=== PATIENT | female | born 1995 | race Caucasian/White ===

== ENCOUNTER 2018-08-15 11:18 | Emergency (ER) | payer OTHER ==
--- NOTE | 2018-08-15 12:28 | UC ---
Complaint Female HPI - HPI Summary HPI Summary: 22-year-old female presents with onset of dysuria, frequency, urgency, and hematuria this morning. Denies fever, chills, abdominal pain, nausea, vomiting , diarrhea, back or flank pain, vaginal discharge, or dyspareunia. Last menstrual period 07/21/2018. Patient on oral control and reports no missed doses. Patient is sexually active with a single male partner. denies use of barrier control. - History Of Current Complaint Chief Complaint: UCGU Stated Complaint: URINARY ISSUE Time Seen by Provider: 08/15/18 12:16 Hx Obtained From: Patient Hx Last Menstrual Period: 07/22/2018 ?: No Pain Intensity: 2 - Allergies/Home Medications Allergies/Adverse Reactions: Allergies Allergy/AdvReac Type Severity Reaction Status Date / Time No Known Allergies Allergy Verified 08/15/18 11:33 Home Medications: Home Medications Desog-E.estradiol/E.estradiol [Pimtrea 28 Day Tablet] 08/15/18 [History] PMH/Surg Hx/FS Hx/Imm Hx Previously Healthy: Yes - Denies significant PMH - Surgical History Surgical History: None - Family History Known Family History: Positive: Non-Contributory - Social History Occupation: Employed Full-time Lives: With Family Alcohol Use: Occasionally Substance Use Type: None Smoking Status (MU): Never Smoked Tobacco Review of Systems All Other Systems Reviewed And Are Negative: Yes Constitutional: Negative: Fever, Chills Respiratory: Positive: Negative Cardiovascular: Positive: Negative Gastrointestinal: Positive: Negative Genitourinary: Positive: Dysuria, Hematuria, Frequency. Negative: Urgency, Vaginal/Penile Burning, Vaginal/Penile Discharge, Ulceration/Lesion, Abnormal Bleeding Musculoskeletal: Positive: Negative Neurological: Positive: Negative Physical Exam - Summary Physical Exam Summary: GENERAL APPEARANCE: Well developed, well nourished, alert and cooperative, and appears to be in no acute distress. CARDIAC: Normal S1 and S2. No S3, S4 or murmurs. Rhythm is regular. There is no peripheral edema, cyanosis or pallor. Extremities are warm and well perfused. Capillary refill is less than 2 seconds. LUNGS: Clear to auscultation without rales, rhonchi, wheezing or diminished breath sounds. ABDOMEN: Positive bowel sounds. Soft, nondistended, nontender. No guarding or rebound. No masses or hepatosplenomegally. No CVA tenderness. MUSKULOSKELETAL: ROM intact to all extremities. No joint erythema or tenderness. Normal muscular development. Normal gait. SKIN: Skin normal color, texture and turgor with no lesions or eruptions. Triage Information Reviewed: Yes Vital Signs: Initial Vital Signs Temp 98.7 F 08/15/18 11:26 Pulse 88 08/15/18 11:26 Resp 16 08/15/18 11:26 BP 122/88 08/15/18 11:26 Pulse Ox 100 08/15/18 11:26 Diagnostics - Laboratory Diagnostic Studies Completed/Ordered: POC UA trace blood otherwise normal. Urine negative. Complaint Female Dx - Course Course Of Treatment: 22-year-old female presents with onset of dysuria, frequency, urgency, and hematuria this morning. Denies fever, chills, abdominal pain, nausea, vomiting, diarrhea, back or flank pain, vaginal discharge, or dyspareunia. Last menstrual period 07/21/2018. Patient on oral control and reports no missed doses. Patient is sexually active with a single male partner. Denies use of barrier control. Afebrile. Vital signs stable. Exam reveals a young adult female in no acute distress. Exam unremarkable. [id number] urinalysis showed trace blood otherwise within normal parameters. Urine is negative. Will send urine culture. Recommend watchful waiting pending urine culture results. Warning symptoms were reviewed with the patient. Verbalizes understanding and agrees with plan of care. - Differential Dx/Diagnosis Differential Diagnosis/HQI/PQRI: Sexually Transmitted Disease, Ureteral Stone, Urinary Tract Infection Provider Diagnosis: Dysuria Discharge - Sign-Out/Discharge Documenting (check all that apply): Patient Departure All imaging exams completed and their final reports reviewed: No Studies - Discharge Plan Condition: Stable Disposition: HOME Patient Education Materials: Dysuria (ED) Referrals: No Primary Care Phys,NOPCP [Primary Care Provider] - Additional Instructions: The urine test performed in the clinic today showed a trace amount of blood but no evidence of an infection. We will send the urine for culture to see if any bacteria grow out. It may take 48-72 hours before we have the results and we will notify you if there is any indication of an infection that needs to be treated. Drink plenty of fluids. To help prevent urinary tract infections: 1) Be sure to wipe from front to back. 2) Urinate immediately after any sexual intercourse. 3) Avoid taking bubble baths. Follow up with your primary care provider in 5-7 days if symptoms persist. Seek immediate medical attention in the emergency room if you develop fever greater than 100.5 F, have severe abdominal pain, persistent vomiting, or any worsening of symptoms. - Billing Disposition and Condition Condition: STABLE Disposition: Home
--- NOTE | 2018-08-16 18:23 | UC ---
- Progress Note Progress Note: 08/16/2018 Urine culture no growth No change Jory Nunez PA-C Course/Dx - Diagnoses Provider Diagnoses: Dysuria Discharge - Sign-Out/Discharge Documenting (check all that apply): Patient Departure - d/C home All imaging exams completed and their final reports reviewed: No Studies - Discharge Plan Condition: Stable Disposition: HOME Patient Education Materials: Dysuria (ED) Referrals: No Primary Care Phys,NOPCP [Primary Care Provider] - Additional Instructions: The urine test performed in the clinic today showed a trace amount of blood but no evidence of an infection. We will send the urine for culture to see if any bacteria grow out. It may take 48-72 hours before we have the results and we will notify you if there is any indication of an infection that needs to be treated. Drink plenty of fluids. To help prevent urinary tract infections: 1) Be sure to wipe from front to back. 2) Urinate immediately after any sexual intercourse. 3) Avoid taking bubble baths. Follow up with your primary care provider in 5-7 days if symptoms persist. Seek immediate medical attention in the emergency room if you develop fever greater than 100.5 F, have severe abdominal pain, persistent vomiting, or any worsening of symptoms. - Billing Disposition and Condition Condition: STABLE Disposition: Home
== END 2018-08-15 12:45 | disposition home or self-care (01) ==
LOC: UCEAST 11:18
DX: R30.0 Dysuria (principal); R31.9 Hematuria, unspecified; Z32.02 Encounter for pregnancy test, result negative
CPT/HCPCS: 81003; 84702; 87086; 99201; G0463